=== PATIENT | female | born 1995 | race Caucasian/White ===

== ENCOUNTER 2017-04-06 01:50 | Inpatient (IN) | payer SELFPAY ==
[~2017-04-06] VITALS: Ht 154.9 cm; Wt 44.2 kg
[2017-04-06] MEDS ORDERED: MAGNESIUM HYDROXIDE SUSP 30 ML CUP PO PRN ×2 (03:15)
[2017-04-06] MEDS ORDERED: diphenhydrAMINE HCL 50 MG CAP - HS PRN PO ×2 (03:15)
[2017-04-06] MEDS ORDERED: LORazepam 1 MG TAB PO PRN ×2 (03:15)
[2017-04-06] MEDS ORDERED: LORazepam 2 MG/ML VIAL IM PRN ×2 (03:15)
[2017-04-06] MEDS ORDERED: ACETAMINOPHEN 325 MG TAB PO PRN ×2 (03:15)
[2017-04-06] MEDS ORDERED: diphenhydrAMINE HCL 50 MG/ML VIAL - HS PRN IM ×2 (03:15)
[2017-04-06] MEDS ORDERED: ALUMINUM/MAGNESIUM/SIMETH 30 ML CUP PO PRN ×2 (03:15)
[2017-04-06 03:19] VITALS: BP 102/69; PULSE 81; RESP 17; TEMP 98.9; O2SAT 100
[2017-04-06] MEDS: NICOTINE 21 MG/24 HR PATCH T-DERMAL SCH ×2 (09:00)
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
--- NOTE | 2017-04-06 11:53 | PD.TTN ---
Patient Problems 1. Discharge planning 2. Medication compliance 3. Knowledge deficit 4. Lack of coping skills Progress Toward Goals Provider Present: Dr. Leah Martin Provider Input: Dr. Martin was not present at treatment team; however, he wants counselor to obtain collateral information if possible due to pt being non verbal. Potential discharge today or tomorrow. Nurse(s) Input: None Psychiatric Counselors Present: Adeel Goodwin Jr., [facility] Psych Therapist Input: Pt provided verbal consent to contact her grandmother at [phone]. Group Spec/RT/OT/PETERS Input: None Occupational Therapist Input: None Adeel Goodwin Jr, [employer] MECH[employer]IC Apr 06, 2017 11:53
--- NOTE | 2017-04-06 11:53 | PD.TTN ---
Patient Problems 1. Discharge planning 2. Medication compliance 3. Knowledge deficit 4. Lack of coping skills Progress Toward Goals Provider Present: Dr. Leah Martin Provider Input: Dr. Martin was not present at treatment team; however, he wants counselor to obtain collateral information if possible due to pt being non verbal. Potential discharge today or tomorrow. Nurse(s) Input: None Psychiatric Counselors Present: Adeel Goodwin Jr., [facility] Psych Therapist Input: Pt provided verbal consent to contact her grandmother at [phone]. Group Spec/RT/OT/PETERS Input: None Occupational Therapist Input: None Adeel Goodwin Jr, NEWS ANALYST Apr 06, 2017 11:53
--- NOTE | 2017-04-06 11:53 | PD.TTN ---
Patient Problems 1. Discharge planning 2. Medication compliance 3. Knowledge deficit 4. Lack of coping skills Progress Toward Goals Provider Present: Dr. Leah Martin Provider Input: Dr. Martin was not present at treatment team; however, he wants counselor to obtain collateral information if possible due to pt being non verbal. Potential discharge today or tomorrow. Nurse(s) Input: None Psychiatric Counselors Present: Adeel Goodwin Jr., [facility] Psych Therapist Input: Pt provided verbal consent to contact her grandmother at [phone]. Group Spec/RT/OT/PETERS Input: None Occupational Therapist Input: None Adeel Goodwin Jr, [employer] SUPER[employer]OR Apr 06, 2017 11:53
[2017-04-06] MEDS ORDERED: hydrOXYzine HCL 50 MG TAB PO PRN ×2 (13:00)
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
[2017-04-06] MEDS ORDERED: SULFAMETHOXAZOLE-TRIMETHOPRIM DS 800-160 MG TAB PO ONE ×2 (15:15)
[2017-04-06 17:35] VITALS: BP 98/59; PULSE 67; RESP 18; TEMP 98.2; O2SAT 100
[2017-04-06 18:12] LABS: BILIRUBIN, URINE NEG (NEG); BLOOD, URINE NEG (NEG); GLUCOSE,URINE NEG (NEG); HYALINE CAST, URINE 1 /lpf (RARE); KETONE, URINE NEG (NEG); MUCUS URINE FEW /lpf (OCC); NITRITE,URINE NEG (NEG); SQUAMOUS EPITHELIAL CELL URINE 3 /hpf (0-5); URINE COLOR YELLOW (YELLW/STRAW); URINE LEUKOCYTE ESTERASE NEG (NEG)
[2017-04-06 18:15] LABS: AUTOMATED NEUTROPHIL # 3.8 TH/MM3 (1.8-7.7); BASOPHIL # 0.1 TH/MM3 (0-0.2); BASOPHIL % 0.8 % (0.0-2.0); EOSINOPHIL # 0.4 TH/MM3 (0-0.4); EOSINOPHIL % 5.6 % (0.0-4.0); HEMATOCRIT 35.2 % (35.0-46.0); HEMOGLOBIN 11.3 GM/DL (11.6-15.3); LYMPH % 33.6 % (9.0-44.0); LYMPHOCYTE # 2.6 TH/MM3 (1.0-4.8); MEAN CELL VOLUME 78.8 FL (80.0-100.0); MEAN CORPUSCULAR HEMOGLOBIN 25.2 PG (27.0-34.0); MEAN PLATELET VOLUME 8.7 FL (7.0-11.0); MONO % 10.2 % (0.0-8.0); MONOCYTE # 0.8 TH/MM3 (0-0.9); NEUT % 49.8 % (16.0-70.0); PLATELET COUNT 261 TH/MM3 (150-450); RED BLOOD COUNT 4.47 MIL/MM3 (4.00-5.30); RED CELL DISTRIBUTION WIDTH 16.1 % (11.6-17.2); WHITE BLOOD COUNT 7.7 TH/MM3 (4.0-11.0)
[2017-04-06 18:38] LABS: BLOOD UREA NITROGEN 14 MG/DL (7-18); CALCIUM 8.6 MG/DL (8.5-10.1); CHLORIDE 104 MEQ/L (98-107); CREATININE 0.92 MG/DL (0.50-1.00); GLOMERULAR FILTRATION RATE 76 ML/MIN (>89); GLUCOSE,RANDOM 70 MG/DL (74-106); MAGNESIUM 1.6 MG/DL (1.5-2.5); SODIUM (NA) 140 MEQ/L (136-145)
[2017-04-06 18:39] LABS: IRON (FE) 33 MCG/DL (50-170)
[2017-04-06 18:42] LABS: % SATURATION IRON PROFILE 7.3 % (20-50); FERRITIN 15 NG/ML (8-252); TOTAL IRON BINDING CAPACITY 452 MCG/DL (250-450)
[2017-04-06] MEDS ORDERED: REMOVE OLD NICOTINE PATCH T-DERMAL SCH ×2 (21:00)
[2017-04-07 05:50] VITALS: BP 102/63; PULSE 76; RESP 16; TEMP 98.1; O2SAT 99
[2017-04-07] MEDS: NICOTINE 21 MG/24 HR PATCH T-DERMAL SCH ×2 (08:10)
--- NOTE | 2017-04-07 10:14 | PD.TTN ---
Patient Problems 1. Discharge planning 2. Medication compliance 3. Knowledge deficit 4. Lack of coping skills Progress Toward Goals Provider Present: Dr. Leah Martin Provider Input: Pt has signed an ROR and will be evaluated for possible discharge today. Medication adjustments have been made. Nurse(s) Present: Nicholas Ng RN Nurse(s) Input: Pt appears somewhat sad and withdrawn but is cooperative, medication compliant and no behavioral problem on the unit. Psychiatric Counselors Present: NEMO Aguilar, Adeel Goodwin Jr., [facility] Psych Therapist Input: Pt appears calm, cooperative, appropriate, organized, oriented and sad. Pt describes medication regiment is working and that she is compliant with plans to remain on medication after discharge. She recognizes her lack of compliance as an issue previously suggesting improving insight into condition. Pt appears to be utilizing coping skills to help manage her depression and states that she feels it has improved. No noted agitation or aggression. She wishes to return home at this time and feels safe to do so. Group Spec/RT/OT/PETERS Present: CHIKI Cortez Group Spec/RT/OT/PETERS Input: Pt isolates to her room. She does not participate in group activities and encouragement will be given to attend the group activities. Discharge Plan SMA Client will return to her grandparent's home where she was living and will continue to follow up with [facility] Monique. Documentation Scribe: NEMO Aguilar Jonathan LMHC Apr 07, 2017 10:14
--- NOTE | 2017-04-07 10:14 | PD.TTN ---
Patient Problems 1. Discharge planning 2. Medication compliance 3. Knowledge deficit 4. Lack of coping skills Progress Toward Goals Provider Present: Dr. Leah Martin Provider Input: Pt has signed an ROR and will be evaluated for possible discharge today. Medication adjustments have been made. Nurse(s) Present: Nicholas Ng RN Nurse(s) Input: Pt appears somewhat sad and withdrawn but is cooperative, medication compliant and no behavioral problem on the unit. Psychiatric Counselors Present: NEMO Aguilar, Adeel Goodwin Jr., [facility] Psych Therapist Input: Pt appears calm, cooperative, appropriate, organized, oriented and sad. Pt describes medication regiment is working and that she is compliant with plans to remain on medication after discharge. She recognizes her lack of compliance as an issue previously suggesting improving insight into condition. Pt appears to be utilizing coping skills to help manage her depression and states that she feels it has improved. No noted agitation or aggression. She wishes to return home at this time and feels safe to do so. Group Spec/RT/OT/PETERS Present: CHIKI Cortez Group Spec/RT/OT/EPTERS Input: Pt isolates to her room. She does not participate in group activities and encouragement will be given to attend the group activities. Discharge Plan SMA Client will return to her grandparent's home where she was living and will continue to follow up with [facility] Monique. Documentation Scribe: NEMO Aguilar Jonathan LMHC Apr 07, 2017 10:14
[2017-04-07] MEDS ORDERED: FERR325T20 PO ×2 (11:26)
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
[2017-04-07] MEDS ORDERED: FERROUS SULFATE 325 MG (65 MG ELEMENTAL IRON) TAB PO SCH ×2 (12:00)
[2017-04-10] MEDS ORDERED: SULFAMETHOXAZOLE-TRIMETHOPRIM DS 800-160 MG TAB PO SCH ×2 (03:00)
== END 2017-04-07 15:15 | disposition left against medical advice (07) | DRG 882 ==
LOC: H270 02:00
PROVIDERS: ADMIT Psychiatry & Neurology Psychiatry; ATTEND Psychiatry & Neurology Psychiatry
DX: F43.25 Adjustment disorder with mixed disturbance of emotions and conduct (principal); D64.9 Anemia, unspecified; F17.210 Nicotine dependence, cigarettes, uncomplicated; F19.10 Other psychoactive substance abuse, uncomplicated; Z91.5 Personal history of self-harm; Z81.8 Family history of other mental and behavioral disorders; J45.909 Unspecified asthma, uncomplicated
CPT/HCPCS: 80048; 81001; 82728; 83540; 83550; 83735; 85025; Q0163